=== PATIENT | male | born 1975 | race American Indian/Alaskan Native ===

== ENCOUNTER 2021-07-23 12:55 | Emergency (ER) | payer SELFPAY ==
[2021-07-23] MEDS: NALOXONE 2 MG/2 ML INJ IV PRN ×2 (15:10→20:00)
[2021-07-23 15:27] LABS: Basophils % (Auto) 0.5 % (0.0-1.8); Eosinophils % (Auto) 0.3 % (0.0-4.3); Hematocrit 45.6 % (35.5-45.6); Hemoglobin 14.8 gm/dl (11.8-15.2); Lymphocytes # (Auto) 0.5 K/mm3 (1.2-5.4); Lymphocytes % (Auto) 6.2 % (13.4-35.0); Mean Corpuscular HGB Conc 33 % (32-34); Mean Corpuscular Volume 94 fl (84-94); Monocytes # (Auto) 0.5 K/mm3 (0.0-0.8); Monocytes % (Auto) 6.6 % (0.0-7.3); Platelet Count 198 K/mm3 (140-440); Red Blood Count 4.87 M/mm3 (3.65-5.03); Red Cell Distribution Width 13.9 % (13.2-15.2)
--- NOTE | 2021-07-23 15:36 | XRay Report ---
CHEST 1 VIEW 07/23/2021 2:24 PM INDICATION / CLINICAL INFORMATION: ams. COMPARISON: None available. FINDINGS: SUPPORT DEVICES: Leadless device projects over the left upper lung. HEART / MEDIASTINUM: No significant abnormality. LUNGS / PLEURA: No significant pulmonary or pleural abnormality. No pneumothorax. ADDITIONAL FINDINGS: No significant additional findings. IMPRESSION: 1. No acute findings. Signer Name: Laith Redding MD Signed: 07/23/2021 3:31 PM Workstation Name: [email or web address]
[2021-07-23 15:50] LABS: Albumin 3.9 g/dL (3.9-5); Calcium 8.7 mg/dL (8.4-10.2)
[2021-07-23 16:01] LABS: Bilirubin,Urine NEG (Negative); Blood,Urine NEG (Negative); Color,Urine Yellow (Yellow); Hyaline Casts,Urine 9 /LPF; Mucus,Urine FEW /HPF; Protein,Urine <15 mg/dL mg/dL (Negative); Urobilinogen,Urine < 2.0 mg/dL (<2.0)
[2021-07-23 16:06] LABS: Benzodiazepines Screen,Urine Negative; Methadone Screen,Urine Negative; Opiate Screen,Urine Negative
--- NOTE | 2021-07-23 16:41 | Emergency Department Report ---
History of Present Illness - General Chief Complaint: Overdose Stated Complaint: DRUG OVERDOSE VS SEIZURE Time Seen by Provider: 07/23/21 14:58 Source: patient, EMS Mode of arrival: Stretcher Limitations: Altered Mental Status - History of Present Illness Initial Comments: 45-year-old male with past medical history of hypertension, diabetes, and CVA without residual deficit presents to the hospital possible drug overdose. Patient was found unresponsive at work. Patient became alert after to Narcan at the scene and required another Narcan on the ED ramp. I was called to the bedside to evaluate patient due to sonorous respirations and decreased r esponsiveness. Patient did receive Narcan 1 mg IV with improvement in mental status. Once awake patient admits to last using drugs 6 days ago. He endorses cocaine and Lortab use. He continues to deny more recent drug use and apparently returned to the [place] area on the 01/12 days ago after attending a drug rehabilitation program.. Patient apparently also has sleep apnea and sleeps with CPAP at night - Related Data Home Medications Medication Instructions Recorded Confirmed Last Taken Keppra 1,000 mg PO DAILY 07/23/21 07/23/21 07/23/21 1000 Previous Rx's Medication Instructions Recorded Last Taken Type Naloxone HCl [Narcan Nasal [place]] 4 mg NS ONCE PRN #1 spray 07/23/21 Unknown Rx Allergies Allergy/AdvReac Type Severity Reaction Status Date / Time No Known Allergies Allergy Verified 07/23/21 22:28 ED Review of Systems ROS: Stated complaint: DRUG OVERDOSE VS SEIZURE Other details as noted in HPI Comment: All other systems reviewed and negative ED Past Medical Hx - Past Medical History Previous Medical History?: Yes Hx Hypertension: Yes Hx CVA: Yes Hx Diabetes: Yes Hx Seizures: Yes - Surgical History Past Surgical History?: Yes Hx Coronary Stent: Yes Additional Surgical History: hernia repair - Medications Home Medications: Home Medications Medication Instructions Recorded Confirmed Last Taken Type Keppra 1,000 mg PO DAILY 07/23/21 07/23/21 07/23/21 History 1000 Naloxone HCl [Narcan Nasal [place]] 4 mg NS ONCE PRN #1 spray 07/23/21 Unknown Rx ED Physical Exam - General Limitations: Altered Mental Status - Other Other exam information: General: No acute distress Head: Atraumatic Eyes: Regular shape 2 to 3 mm pupil on the right compared to the left 5 mm pupil ENT: Moist mucous membranes Neck: Normal appearance, no midline tenderness Chest: Clear to auscultation bilaterally CV: Regular rate and rhythm Abdomen: Soft, normal bowel sounds, nontender, nondistended, no rebound or guarding Back: Normal inspection Extremity: Normal inspection, full range of motion Neuro: Lethargic, drowsy. After Narcan drowsy but oriented x3 with equal upper and lower extremity strength and intact sensation to light Psych: Cooperative Skin: No rash ED Course Vital Signs 07/23/21 07/23/21 07/23/21 13:01 13:22 13:31 Temperature 97.6 F Pulse Rate 113 H 91 H Respiratory 16 11 L 12 Rate Blood Pressure 198/104 Blood Pressure 207/109 [Right] O2 Sat by Pulse 97 92 Oximetry 07/23/21 07/23/21 07/23/21 13:45 14:01 14:15 Temperature Pulse Rate 93 H 68 68 Respiratory 12 8 L 10 L Rate Blood Pressure 199/121 189/106 175/103 Blood Pressure [Right] O2 Sat by Pulse 99 93 88 Oximetry 07/23/21 07/23/21 07/23/21 14:31 14:45 15:01 Temperature Pulse Rate 69 69 91 H Respiratory 12 11 L 13 Rate Blood Pressure 178/93 207/99 206/95 Blood Pressure [Right] O2 Sat by Pulse 93 92 94 Oximetry 07/23/21 07/23/21 07/23/21 15:15 15:31 15:45 Temperature Pulse Rate 97 H 82 70 Respiratory 20 17 12 Rate Blood Pressure 205/107 174/88 190/98 Blood Pressure [Right] O2 Sat by Pulse 96 95 99 Oximetry 07/23/21 07/23/21 07/23/21 15:46 15:55 15:56 Temperature Pulse Rate 68 Respiratory 19 19 Rate Blood Pressure Blood Pressure 188/94 [Right] O2 Sat by Pulse 99 97 95 Oximetry 07/23/21 07/23/21 07/23/21 16:01 16:15 16:31 Temperature Pulse Rate 70 76 74 Respiratory 14 21 13 Rate Blood Pressure 188/94 190/106 197/104 Blood Pressure [Right] O2 Sat by Pulse 98 97 95 Oximetry 07/23/21 07/23/21 07/23/21 16:45 17:01 17:15 Temperature Pulse Rate 79 79 72 Respiratory 14 15 14 Rate Blood Pressure 199/108 220/112 210/95 Blood Pressure [Right] O2 Sat by Pulse 95 88 87 Oximetry 07/23/21 07/23/21 07/23/21 17:30 17:47 18:01 Temperature Pulse Rate 94 H 81 68 Respiratory 21 19 9 L Rate Blood Pressure 190/101 218/115 Blood Pressure [Right] O2 Sat by Pulse 90 97 97 Oximetry 07/23/21 07/23/21 07/23/21 18:15 18:17 18:31 Temperature 97.8 F Pulse Rate 66 67 65 Respiratory 13 15 11 L Rate Blood Pressure 220/106 220/106 183/113 Blood Pressure [Right] O2 Sat by Pulse 95 98 98 Oximetry 07/23/21 07/23/21 07/23/21 18:45 19:01 19:13 Temperature Pulse Rate 64 67 66 Respiratory 15 15 15 Rate Blood Pressure 195/105 191/89 Blood Pressure 181/98 [Right] O2 Sat by Pulse 99 95 96 Oximetry 07/23/21 07/23/21 07/23/21 19:15 19:31 19:45 Temperature Pulse Rate 65 63 70 Respiratory 17 13 13 Rate Blood Pressure 181/98 175/100 175/100 Blood Pressure [Right] O2 Sat by Pulse 97 96 95 Oximetry 07/23/21 07/23/21 07/23/21 20:01 20:15 20:31 Temperature Pulse Rate 84 76 67 Respiratory 16 27 H 14 Rate Blood Pressure 206/91 176/126 177/115 Blood Pressure [Right] O2 Sat by Pulse 97 96 99 Oximetry 07/23/21 07/23/21 07/23/21 20:45 21:01 22:24 Temperature Pulse Rate 70 69 70 Respiratory 17 17 Rate Blood Pressure 184/100 182/113 180/100 Blood Pressure [Right] O2 Sat by Pulse 98 97 Oximetry 07/23/21 23:49 Temperature Pulse Rate 85 Respiratory 18 Rate Blood Pressure Blood Pressure 180/100 [Right] O2 Sat by Pulse 100 Oximetry - Reevaluation(s) Reevaluation #1: 07/23/21 20:44 Patient still requiring intermittent Narcan doses for repeated drowsiness. Patient has been placed on supplemental oxygen due to desaturation with sleeping which is consistent with his history of sleep apnea and CPAP use. Patient will be signed out to my colleague for further observation with once patient consistently remained awake without requiring Narcan doses ED Medical Decision Making - Lab Data Result diagrams: 07/23/21 14:40 07/23/21 14:40 Lab Results 07/23/21 07/23/21 07/23/21 Range/Units 14:40 14:40 14:40 WBC 8.1 (4.5-11.0) K/mm3 RBC 4.87 (3.65-5.03) M/mm3 Hgb 14.8 (11.8-15.2) gm/dl Hct 45.6 (35.5-45.6) % MCV 94 (84-94) fl MCH 30 (28-32) pg MCHC 33 (32-34) % RDW 13.9 (13.2-15.2) % Plt Count 198 (140-440) K/mm3 Lymph % (Auto) 6.2 L (13.4-35.0) % [place] % (Auto) 6.6 (0.0-7.3) % Eos % (Auto) 0.3 (0.0-4.3) % Baso % (Auto) 0.5 (0.0-1.8) % Lymph # (Auto) 0.5 L (1.2-5.4) K/mm3 [place] # (Auto) 0.5 (0.0-0.8) K/mm3 Eos # (Auto) 0.0 (0.0-0.4) K/mm3 Baso # (Auto) 0.0 (0.0-0.1) K/mm3 Seg Neutrophils % 86.4 H (40.0-70.0) % Seg Neutrophils # 7.0 (1.8-7.7) K/mm3 Sodium 140 (137-145) mmol/L Potassium 4.1 (3.6-5.0) mmol/L Chloride 100.8 (98-107) mmol/L Carbon Dioxide 27 (22-30) mmol/L Anion Gap 16 mmol/L BUN 13 (9-20) mg/dL Creatinine 1.3 (0.8-1.3) mg/dL Estimated GFR 59 ml/min BUN/Creatinine Ratio 10 % Glucose 199 H (75-100) mg/dL POC Glucose (70-105) mg/dL Calcium 8.7 (8.4-10.2) mg/dL Total Bilirubin 0.20 (0.1-1.2) mg/dL AST 24 (5-40) units/L ALT 22 (7-56) units/L Alkaline Phosphatase 58 (35-129) units/L Total Protein 6.3 (6.3-8.2) g/dL Albumin 3.9 (3.9-5) g/dL Albumin/Globulin Ratio 1.6 % Urine Color (Yellow) Urine Turbidity (Clear) Urine pH (5.0-7.0) Ur Specific Dike (1.003-1.030) Urine Protein (Negative) mg/dL Urine Glucose (UA) (Negative) mg/dL Urine Ketones (Negative) mg/dL Urine Blood (Negative) Urine Nitrite (Negative) Urine Bilirubin (Negative) Urine Urobilinogen (<2.0) mg/dL Ur Leukocyte Esterase (Negative) Urine WBC (Auto) (0.0-6.0) /HPF Urine RBC (Auto) (0.0-6.0) /HPF U Epithel Cells (Auto) (0-13.0) /HPF Hyaline Casts /LPF Urine Mucus /HPF Salicylates < 0.3 L (2.8-20.0) mg/dL Urine Opiates Screen Urine Methadone Screen Acetaminophen (10.0-30.0) ug/mL Ur Barbiturates Screen Ur Phencyclidine Scrn Ur Amphetamines Screen U Benzodiazepines Scrn Urine Cocaine Screen U Marijuana (THC) Screen Drugs of Abuse Note Plasma/Serum Alcohol (0-0.07) % 07/23/21 07/23/21 07/23/21 Range/Units 14:40 14:40 15:00 WBC (4.5-11.0) K/mm3 RBC (3.65-5.03) M/mm3 Hgb (11.8-15.2) gm/dl Hct (35.5-45.6) % MCV (84-94) fl MCH (28-32) pg MCHC (32-34) % RDW (13.2-15.2) % Plt Count (140-440) K/mm3 Lymph % (Auto) (13.4-35.0) % [place] % (Auto) (0.0-7.3) % Eos % (Auto) (0.0-4.3) % Baso % (Auto) (0.0-1.8) % Lymph # (Auto) (1.2-5.4) K/mm3 [place] # (Auto) (0.0-0.8) K/mm3 Eos # (Auto) (0.0-0.4) K/mm3 Baso # (Auto) (0.0-0.1) K/mm3 Seg Neutrophils % (40.0-70.0) % Seg Neutrophils # (1.8-7.7) K/mm3 Sodium (137-145) mmol/L Potassium (3.6-5.0) mmol/L Chloride (98-107) mmol/L Carbon Dioxide (22-30) mmol/L Anion Gap mmol/L BUN (9-20) mg/dL Creatinine (0.8-1.3) mg/dL Estimated GFR ml/min BUN/Creatinine Ratio % Glucose (75-100) mg/dL POC Glucose 182 H (70-105) mg/dL Calcium (8.4-10.2) mg/dL Total Bilirubin (0.1-1.2) mg/dL AST (5-40) units/L ALT (7-56) units/L Alkaline Phosphatase (35-129) units/L Total Protein (6.3-8.2) g/dL Albumin (3.9-5) g/dL Albumin/Globulin Ratio % Urine Color (Yellow) Urine Turbidity (Clear) Urine pH (5.0-7.0) Ur Specific Dike (1.003-1.030) Urine Protein (Negative) mg/dL Urine Glucose (UA) (Negative) mg/dL Urine Ketones (Negative) mg/dL Urine Blood (Negative) Urine Nitrite (Negative) Urine Bilirubin (Negative) Urine Urobilinogen (<2.0) mg/dL Ur Leukocyte Esterase (Negative) Urine WBC (Auto) (0.0-6.0) /HPF Urine RBC (Auto) (0.0-6.0) /HPF U Epithel Cells (Auto) (0-13.0) /HPF Hyaline Casts /LPF Urine Mucus /HPF Salicylates (2.8-20.0) mg/dL Urine Opiates Screen Urine Methadone Screen Acetaminophen 5.0 L (10.0-30.0) ug/mL Ur Barbiturates Screen Ur Phencyclidine Scrn Ur Amphetamines Screen U Benzodiazepines Scrn Urine Cocaine Screen U Marijuana (THC) Screen Drugs of Abuse Note Plasma/Serum Alcohol < 0.01 (0-0.07) % 07/23/21 07/23/21 Range/Units 15:45 15:45 WBC (4.5-11.0) K/mm3 RBC (3.65-5.03) M/mm3 Hgb (11.8-15.2) gm/dl Hct (35.5-45.6) % MCV (84-94) fl MCH (28-32) pg MCHC (32-34) % RDW (13.2-15.2) % Plt Count (140-440) K/mm3 Lymph % (Auto) (13.4-35.0) % [place] % (Auto) (0.0-7.3) % Eos % (Auto) (0.0-4.3) % Baso % (Auto) (0.0-1.8) % Lymph # (Auto) (1.2-5.4) K/mm3 [place] # (Auto) (0.0-0.8) K/mm3 Eos # (Auto) (0.0-0.4) K/mm3 Baso # (Auto) (0.0-0.1) K/mm3 Seg Neutrophils % (40.0-70.0) % Seg Neutrophils # (1.8-7.7) K/mm3 Sodium (137-145) mmol/L Potassium (3.6-5.0) mmol/L Chloride (98-107) mmol/L Carbon Dioxide (22-30) mmol/L Anion Gap mmol/L BUN (9-20) mg/dL Creatinine (0.8-1.3) mg/dL Estimated GFR ml/min BUN/Creatinine Ratio % Glucose (75-100) mg/dL POC Glucose (70-105) mg/dL Calcium (8.4-10.2) mg/dL Total Bilirubin (0.1-1.2) mg/dL AST (5-40) units/L ALT (7-56) units/L Alkaline Phosphatase (35-129) units/L Total Protein (6.3-8.2) g/dL Albumin (3.9-5) g/dL Albumin/Globulin Ratio % Urine Color Yellow (Yellow) Urine Turbidity Clear (Clear) Urine pH 6.0 (5.0-7.0) Ur Specific Dike 1.015 (1.003-1.030) Urine Protein <15 mg/dl (Negative) mg/dL Urine Glucose (UA) 150 (Negative) mg/dL Urine Ketones Neg (Negative) mg/dL Urine Blood Neg (Negative) Urine Nitrite Neg (Negative) Urine Bilirubin Neg (Negative) Urine Urobilinogen < 2.0 (<2.0) mg/dL Ur Leukocyte Esterase Tr (Negative) Urine WBC (Auto) 13.0 H (0.0-6.0) /HPF Urine RBC (Auto) 1.0 (0.0-6.0) /HPF U Epithel Cells (Auto) < 1.0 (0-13.0) /HPF Hyaline Casts 9 /LPF Urine Mucus Few /HPF Salicylates (2.8-20.0) mg/dL Urine Opiates Screen Negative Urine Methadone Screen Negative Acetaminophen (10.0-30.0) ug/mL Ur Barbiturates Screen Negative Ur Phencyclidine Scrn Negative Ur Amphetamines Screen Positive U Benzodiazepines Scrn Negative Urine Cocaine Screen Positive U Marijuana (THC) Screen Positive Drugs of Abuse Note Disclamer Plasma/Serum Alcohol (0-0.07) % - EKG Data -: EKG Interpreted by Co EKG shows normal: sinus rhythm, intervals (qtc 415), QRS complexes (qrsd 96) Rate: normal (80) - Radiology Data Radiology results: report reviewed Chest x-ray: No acute finding CT BRAIN: 07/23/2021 INDICATION / CLINICAL INFORMATION: ams, drug overdose. COMPARISON: None available. FINDINGS: BRAIN/INTRACRANIAL STRUCTURES: Unenhanced CT images of the brain demonstrate no evidence of acute abnormality. Cortical and subcortical chronic encephalomalacia is present in the medial aspect of the right frontal lobe, most likely due to remote right anterior cerebral artery distribution ischemic injury. There is no evidence of acute ischemic injury, hemorrhage, or mass. There are no abnormal extra- axial fluid collections. EXTRACRANIAL STRUCTURES: Unremarkable. IMPRESSION: No acute abnormality. Chronic right frontal lobe ischemic encephalomalacia CT CERVICAL SPINE: 07/23/2021 INDICATION / CLINICAL INFORMATION: ams, drug overdose. COMPARISON: None available. FINDINGS: CT images of the cervical spine were obtained. Images are evaluated in the axial, coronal, and sagittal planes. There is no evidence of acute abnormality. Left convex scoliosis of the cervical thoracic spine is present. Reversal of cervical lordosis is centered at the C3-4 level in the sagittal plane. There is no evidence of fracture or dislocation. There is no evidence of osseous canal or foraminal narrowing. CRANIOCERVICAL JUNCTION: Unremarkable. PARASPINAL STRUCTURES: IMPRESSION: No acute abnormality. - Medical Decision Making 45-year-old male presents with intermittent respiratory depression that improves with administration of Narcan. Patient has a history of polysubstance abuse. He denies recent abuse however, no other acute issues have been identified after ED work-up involving labs, urine, and CT head, cervical spine, and chest x-ray did not show acute findings. UDS positive for amphetamines, cocaine, and marijuana. Patient required repeated Narcan doses be signed out to oncoming provider Dr. Medina with instructions to discharge once patient can remain alert without resedation Patient did receive mental health evaluation and was cleared with outpatient resources provided Critical Care Time: Yes Critical care time in (mins) excluding proc time.: 35 Critical care attestation.: If time is entered above; I have spent that time in minutes in the direct care of this critically ill patient, excluding procedure time. Critical Care Time: 35 Minutes of critical care time excluding procedures were used in the care of the patient. I discussed treatment plan with the nursing team members. I reviewed electronic record. Required multiple reassessments to determine mental status and administration of Narcan ED Disposition Clinical Impression: Drug overdose, Polysubstance abuse, History of CVA (cerebrovascular accident), Chronic hypertension, Sleep apnea Disposition: 01 HOME / SELF CARE / HOMELESS Is pt being admited?: No Does the pt Need Aspirin: No Condition: Stable Instructions: Substance Use Disorder, Hypertension (ED) Additional Instructions: In case of an emergency, please contact the following numbers: [place] Crisis and Access Line: Number: Crisis Text Line: (Text START) Number: [phone] Suicide Prevention Line: Number: Emergency Number: 911 SUBSTANCE ABUSE PROGRAMS: [facility]: Location: [place], [place] [employer] Address: [address] [place] [address] [facility]: Address: [address] [place] [address] [place] [address] [facility]: Address: [address] [place] [address] [facility]: Address: [address] [place] [address] [facility] Address: [address] [place] [address]. Please contact above numbers to attempt placement into free based program. Medicaid Programs: [facility]: Address: [address] [place] [address] [facility]: Address: [address] [place] [id number] Prescriptions: Naloxone HCl [Narcan Nasal [place]] 4 mg NS ONCE PRN #1 spray PRN Reason: Opioid Reversal Referrals: PRIMARY CARE, [Primary Care Provider] - 3-[address] [facility] [Provider Group] - 3-5 Days
[2021-07-23 16:46] LABS: Amphetamine Screen,Urine Positive; Cannabinoid Screen,Urine Positive; Cocaine Screen,Urine Positive
--- NOTE | 2021-07-23 18:22 | Cat Scan Report ---
CT BRAIN: 07/23/2021 INDICATION / CLINICAL INFORMATION: ams, drug overdose. COMPARISON: None available. FINDINGS: BRAIN/INTRACRANIAL STRUCTURES: Unenhanced CT images of the brain demonstrate no evidence of acute abn ormality. Cortical and subcortical chronic encephalomalacia is present in the medial aspect of the right fronta l lobe, most likely due to remote right anterior cerebral artery distribution ischemic injury. There is no evidence of acute ischemic injury, hemorrhage, or mass. There are no abnormal extra-axial fluid collections. EXTRACRANIAL STRUCTURES: Unremarkable. IMPRESSION: No acute abnormality. Chronic right frontal lobe ischemic encephalomalacia All CT scans at this location are performed using dose reduction to ALARA by means of automated expos ure control. Signer Name: Kevin Clayton MD Signed: 07/23/2021 6:18 PM Workstation Name: [id number]
--- NOTE | 2021-07-23 18:25 | Cat Scan Report ---
\ ; CT CERVICAL SPINE: 07/23/2021 INDICATION / CLINICAL INFORMATION: ams, drug overdose. COMPARISON: None available. FINDINGS: CT images of the cervical spine were obtained. Images are evaluated in the axial, coronal, and sagitt al planes. There is no evidence of acute abnormality. Left convex scoliosis of the cervical thoracic spine is present. Reversal of cervical lordosis is jeuss tered at the C3-4 level in the sagittal plane. There is no evidence of fracture or dislocation. There is no evidence of osseous canal or foraminal n arrowing. CRANIOCERVICAL JUNCTION: Unremarkable. PARASPINAL STRUCTURES: IMPRESSION: No acute abnormality. All CT scans at this location are performed using dose reduction to ALARA by means of automated expos ure control. Signer Name: Kevin Clayton MD Signed: 07/23/2021 6:21 PM Workstation Name: [id number]
[2021-07-23] MEDS ORDERED: amLODIPine 5 MG TAB PO ONE (21:04)
[2021-07-23 22:28] VITALS: BP 180/100
--- NOTE | 2021-07-24 20:24 | Electrocardiograph Report ---
[facility] Test Date: 2021-07-23 Test Time: 13:48:14 Pat Name: LEDA FISHER Department: Room: Gender: M Olive Picker: JULIO C : 1975 Requested By: PRASANNA HOOVER Order Number: [id number] Reading MD: Ayesha Salas Measurements Intervals [place] Rate: 80 P: 40 VT: 162 QRS: -30 QRSD: 96 T: 41 QT: 360 QTc: 415 Interpretive Statements Sinus rhythm Probable left atrial enlargement Left axis deviation No previous ECG available for comparison Electronically Signed On 07-24-2021 20:23:55 EDT by Ayesha Salas
== END 2021-07-23 23:50 | disposition home or self-care (01) ==
LOC: ED 12:55
DX: T50.901A Poisoning by unspecified drugs, medicaments and biological substances, accidental (unintentional), initial encounter (principal); F19.10 Other psychoactive substance abuse, uncomplicated; Z86.73 Personal history of transient ischemic attack (TIA), and cerebral infarction without residual deficits; I10 Essential (primary) hypertension; G47.30 Sleep apnea, unspecified; E11.9 Type 2 diabetes mellitus without complications; R56.9 Unspecified convulsions; Z98.890 Other specified postprocedural states; Z79.899 Other long term (current) drug therapy; Y92.89 Other specified places as the place of occurrence of the external cause
CPT/HCPCS: 36415; 70450; 71045; 72125; 80053; 80307; 81001; 82962; 85025; 87086; 93005; 96374; 96375; 99285; J2310; J3490; 80320; G0480